=== PATIENT | female | born 1950 | race Two or more races ===

== ENCOUNTER 2023-04-18 07:47 | Outpatient (CLI) | payer OTHER ==
[~2023-04-18 07:47] MED LIST: ATACAND HCT 321 EACH PO; BINOSTO70 MG PO; PEPCID AC10 MG PO; SYNTHROID175 MCG PO; ZOCOR20 MG PO
== END 2023-04-18 07:53 | disposition home or self-care (01) ==
LOC: LAB 07:47
PROVIDERS: ATTEND Internal Medicine
DX: E87.6 Hypokalemia (principal)

== ENCOUNTER → 2023-04-20 | Day surgery (SDC) | payer OTHER ==
[~2023-04-20] VITALS: Ht 160 cm; Wt 102.5 kg
[~2023-04-20] MED LIST changes: +ALENDRONATE SOD70 MG; +FAMOTIDINE20 MG; +GABAPENTIN600 MG; +NAPROXEN125 MG/5 M PO; +PANTOPRAZOLE SO40 MG
== END | disposition home or self-care (01) ==
LOC: ADM 04-14 07:00 → CIR.AMB 05:25
PROVIDERS: ATTEND Surgery
DX: K43.2 Incisional hernia without obstruction or gangrene (principal); K43.9 Ventral hernia without obstruction or gangrene; Z20.822 Contact with and (suspected) exposure to COVID-19; E03.9 Hypothyroidism, unspecified; Z88.8 Allergy status to other drugs, medicaments and biological substances

== ENCOUNTER 2023-04-23 09:56 | Inpatient (IN) | payer OTHER ==
[~2023-04-23] VITALS: Ht 160 cm; Wt 103.0 kg
[~2023-04-23 09:56] MED LIST changes: -ALENDRONATE SOD70 MG; -FAMOTIDINE20 MG; -GABAPENTIN600 MG; -NAPROXEN125 MG/5 M PO; -PANTOPRAZOLE SO40 MG
[2023-04-23] MEDS ORDERED: NAPROXEN125 MG/5 M PO (10:22)
[2023-04-29] MEDS ORDERED: ALENDRONATE SOD70 MG (09:19)
[2023-04-29] MEDS ORDERED: FAMOTIDINE20 MG (09:19)
[2023-04-29] MEDS ORDERED: PANTOPRAZOLE SO40 MG (09:20)
[2023-04-29] MEDS ORDERED: GABAPENTIN600 MG (09:20)
== END 2023-04-30 16:03 | disposition home or self-care (01) | DRG 388 ==
LOC: ER 09:56 → ICU-2 17:30 → SURG 04-27 16:36
PROVIDERS: Emergency Medicine; Internal Medicine; Internal Medicine Nephrology; Surgery; ADMIT Internal Medicine; ATTEND Internal Medicine
PROC: BW21YZZ Computerized Tomography (CT Scan) of Abdomen and Pelvis using Other Contrast (ICD-10-PCS; principal; 2023-04-23)
DX: K56.609 Unspecified intestinal obstruction, unspecified as to partial versus complete obstruction (principal); A41.9 Sepsis, unspecified organism; N17.9 Acute kidney failure, unspecified; N39.0 Urinary tract infection, site not specified; D72.829 Elevated white blood cell count, unspecified; I10 Essential (primary) hypertension